=== PATIENT | male | born 1975 | race Caucasian/White ===

== ENCOUNTER 2020-01-21 07:26 | Day surgery (SDC) | payer OTHER, SELFPAY ==
[2020-01-21] VITALS (7 sets, daily range): BP systolic 134–160; BP diastolic 85–107; PULSE 84–103; RESP 15–18; TEMP 36.4–36.6; O2SAT 97–99
--- NOTE | 2020-01-21 08:09 | ED.GENADULT ---
HPI - General Adult General Chief complaint: Unspecified Stated complaint: I CANT SWALLOW Time Seen by Provider: 01/21/20 08:09 Source: patient and family Mode of arrival: ambulatory Limitations: no limitations History of Present Illness HPI narrative: Patient is a 44-year-old male with a history of hypertension who presents for evaluation of difficulty swallowing. Patient states that he went to swallow a 200 mg ibuprofen tablet last night and feels as if it got stuck in his throat. He has been unable to swallow his own secretions, and has had some episodes of vomiting. He denies any chest pain. He states he just has an irritation in his upper throat. He states approximately 10 years ago he had a piece of chicken that was stuck and he required endoscopy to have that removed. This was done at [facility]. He did follow with a marketing programs specialist for a short time following that but no longer follows with anybody. Patient denying chest pain or shortness of breath. Related Data Allergies Allergy/AdvReac Type Severity Reaction Status Date / Time atorvastatin Allergy Unknown Unknown Verified 01/21/20 07:35 Review of Systems Review of Systems: Narrative: CONSTITUTIONAL: Denies fever CARDIOVASCULAR: Denies chest pain RESPIRATORY: Denies cough or dyspnea. GASTROINTESTINAL: Denies abdominal pain, reports nausea and vomiting SKIN: Denies rash MUSCULOSKELETAL: Denies back pain NEUROLOGIC: Denies headache PMFSH Past Medical History Medical History Hypertension Hypothyroidism Social History Social History (Updated 01/21/20 @ 08:48 by Tere Burger MD) Smoking status: Former smoker Tobacco type: cigarettes Alcohol intake: current Substance use: never Living arrangements: with family Gender identity (if verbalized by the patient): Male Exam Narrative: Exam Narrative: GENERAL: Awake, alert, conversant HEAD: Normocephalic, atraumatic. EYES: PERRLA and EOMI. ENT: Nares clear, no rhinorrhea or epistaxis. Mucous membranes moist. NECK: Supple. CHEST: No respiratory distress, breathing even and non labored HEART: Regular rate, sinus rhythm ABDOMEN:Non distended, non tender EXTREMITIES: Normal range of motion. No edema. SKIN: Warm, dry, no rash. NEURO:No focal deficits. Alert and oriented x3 Course Vital Signs Vital signs: Vital Signs Temperature 36.6 C 01/21/20 07:30 Pulse Rate 97 01/21/20 07:30 Respiratory Rate 15 01/21/20 07:30 Blood Pressure 160/107 H 01/21/20 07:30 Pulse Oximetry 99 01/21/20 07:30 Temperature 36.6 C 01/21/20 07:30 Pulse Rate 88 01/21/20 10:15 Respiratory Rate 17 01/21/20 10:15 Blood Pressure 148/98 H 01/21/20 10:15 Pulse Oximetry 97 01/21/20 10:15 Medical Decision Making MDM Narrative Medical decision making narrative: Patient presented for difficulty swallowing in the setting of a pill that may be stuck. Patient at this point can barely tolerate his secretions but is hemodynamically stable. No chest pain or shortness of breath. IV access obtained, labs are drawn. We tried nitroglycerin and glucagon, patient did try to swallow some liquid and was unable to tolerate this. Dr. Awan consulted with gastroenterology will take patient to endoscopy suite this morning. Differential Diagnosis Differential Diagnosis: Pill esophagitis, food impaction, obstruction Vital Signs Vital Signs: Vital Signs Temperature 36.6 C 01/21/20 07:30 Pulse Rate 97 01/21/20 07:30 Respiratory Rate 15 01/21/20 07:30 Blood Pressure 160/107 H 01/21/20 07:30 Pulse Oximetry 99 01/21/20 07:30 Temperature 36.6 C 01/21/20 07:30 Pulse Rate 88 01/21/20 10:15 Respiratory Rate 17 01/21/20 10:15 Blood Pressure 148/98 H 01/21/20 10:15 Pulse Oximetry 97 01/21/20 10:15 Lab Data Result diagrams: 01/21/20 09:03 01/21/20 09:03 Labs: Lab Results 01/10
[2020-01-21 09:09] LABS: Basophils Absolute Auto 0.1 K/mm3 (0.0-0.1); Basophils Percent Auto 0.6 % (0.2-1.2); Eosinophils Absolute Auto 0.2 K/mm3 (0-0.3); Eosinophils Percent Auto 1.9 % (0-4.4); Hematocrit 44.3 % (42.0-52.0); Hemoglobin 14.9 g/dL (14.0-18.0); Immature Granulocyte Absolute 0.04 K/mm3 (0.00-0.031); Immature Granulocyte Percent A 0.5 % (0-0.5); Lymphocytes Absolute Auto 1.37 K/mm3 (0.9-3.2); Lymphocytes Percent Auto 17.3 % (18.3-44.2); Mean Corpuscular HGB Conc 33.6 g/dl (32-36); Mean Corpuscular Hemoglobin 28.5 pg (26-34); Mean Corpuscular Volume 84.9 fl (80-100); Mean Platelet Volume 8.5 fl (7.4-10.4); Monocytes Absolute Auto 0.5 K/mm3 (0.1-0.6); Monocytes Percent Auto 5.8 % (2.6-8.5); Neutrophils Absolute Auto 5.9 K/mm3 (1.3-6.7); Neutrophils Percent Auto 73.9 % (45.5-73.1); Platelet Count Result 300 k/mm3 (150-375); Red Blood Count 5.22 M/mm3 (4.6-6.20); Red Cell Distribution Width 13.2 % (11.5-14.5); White Blood Count 7.9 K/mm3 (4.5-10.0)
[2020-01-21 09:22] LABS: Anion Gap 9 mmol/L (8-16); Blood Urea Nitrogen 13 mg/dL (9-20); Calcium 9.5 mg/dL (8.4-10.2); Carbon Dioxide 27 mmol/L (22-30); Chloride 101 mmol/L (98-107); Estimated CRCL calculation 131 ml/min; Estimated Glomerular Filt Rate > 60; Glucose 141 mg/dL (75-110); Potassium 4.6 mmol/L (3.4-5.0); Sodium 137 mmol/L (137-145)
[2020-01-21] MEDS: GLUCAGON FOR INJ 1 MG VIAL IM (10:02)
[2020-01-21] MEDS: ONDANSETRON INJ 4 MG/2 ML VIAL IV PUSH (10:03)
[2020-01-21] MEDS: NITROGLYCERIN SL 0.4 MG TABLET SUBLINGUAL (10:03)
[2020-01-21] MEDS: SODIUM CHLORIDE 0.9% IV 1,000 ML 999 ML IV CONT (10:58)
--- NOTE | 2020-01-21 11:06 | WPDANESEPPF ---
Anes - Initial Pre Proc Eval Procedure: Operation Date: 01/21/20 11:00 Proposed Procedures p Esophagogastroduodenoscopy - Bandar Awan MD Date/Time: 01/21/20 11:06 Surgeon: Bandar Awan MD Pre Op Diagnosis: I CANT SWALLOW Patient Data Age: 44 Gender: M Height: 1.91 m Weight: 151 kg Last Vital Signs Temp 36.6 C 01/21/20 07:30 Pulse 88 01/21/20 10:15 Resp 17 01/21/20 10:15 BP 148/98 H 01/21/20 10:15 Pulse Ox 97 01/21/20 10:15 Allergies Allergy/AdvReac Type Severity Reaction Status Date / Time atorvastatin Allergy Unknown Unknown Verified 01/21/20 07:35 Home Medications Medication Instructions Recorded Confirmed Type hydrochlorothiazide 25 mg tablet 25 mg PO DAILY #90 tablet 12/24/19 Rx benazepril 10 mg tablet See Rx Instructions .ROUTE 01/06/20 Rx .COMPLEX #30 tablet levothyroxine 100 mcg tablet 100 mcg PO DAILY #60 tablet 01/06/20 Rx Laboratory Tests 01/21/20 01/21/20 09:03 09:03 WBC 7.9 K/mm3 K/mm3 (4.5-10.0) RBC 5.22 M/mm3 M/mm3 (4.6-6.20) Hgb 14.9 g/dL g/dL (14.0-18.0) Hct 44.3 % % (42.0-52.0) MCV 84.9 fl fl (80-100) MCH 28.5 pg pg (26-34) MCHC 33.6 g/dl g/dl (32-36) RDW 13.2 % % (11.5-14.5) Plt Count 300 k/mm3 k/mm3 (150-375) MPV 8.5 fl fl (7.4-10.4) Immature Gran % (Auto) 0.5 % % (0-0.5) Neut % (Auto) 73.9 % H % (45.5-73.1) Lymph % (Auto) 17.3 % L % (18.3-44.2) [place] % (Auto) 5.8 % % (2.6-8.5) Eos % (Auto) 1.9 % % (0-4.4) Baso % (Auto) 0.6 % % (0.2-1.2) Lymph # (Auto) 1.37 K/mm3 K/mm3 (0.9-3.2) [place] # (Auto) 0.5 K/mm3 K/mm3 (0.1-0.6) Eos # (Auto) 0.2 K/mm3 K/mm3 (0-0.3) Baso # (Auto) 0.1 K/mm3 K/mm3 (0.0-0.1) Abs Immat Gran (auto) 0.04 K/mm3 H K/mm3 (0.00-0.031) Absolute Neuts (auto) 5.9 K/mm3 K/mm3 (1.3-6.7) Absolute Nucleated RBC 0.0 K/mm3 K/mm3 (0.0-0.012) Nucleated RBC % 0.0 % % (0.0-0.2) Sodium 137 mmol/L mmol/L (137-145) Potassium 4.6 mmol/L mmol/L (3.4-5.0) Chloride 101 mmol/L mmol/L (98-107) Carbon Dioxide 27 mmol/L mmol/L (22-30) Anion Gap 9 mmol/L mmol/L (8-16) BUN 13 mg/dL mg/dL (9-20) Creatinine 1.00 mg/dL mg/dL (0.7-1.3) Estim Creat Clear Calc 131 ml/min ml/min Estimated GFR > 60 (59 - ) Glucose 141 mg/dL H mg/dL (75-110) Calcium 9.5 mg/dL mg/dL (8.4-10.2) Patient hx anesthesia problems: none Family hx anesthesia problems: none [facility], [facility] Past Medical History Medical History (Updated 01/21/20 @ 11:07 by Xavier Ochoa MD) Hypercholesterolemia Hypertension Hypothyroidism Morbid obesity with BMI of 40.0-44.9, adult Social History Social History (Updated 01/21/20 @ 08:48 by Tere Burger MD) Smoking status: Former smoker Tobacco type: cigarettes Alcohol intake: current Substance use: never Living arrangements: with family Gender identity (if verbalized by the patient): Male Anes - Eval Final PreProcedure Day of Procedure 01/21/20 11:06 Patient weight: obese Heart: regular rate and rhythm Lungs: clear to auscultation and normal air movement Airway: Mallampati scale class II Neurological: alert and oriented Last oral intake: >/= 8 hours ASA classification: III Emergent: no Anesthetic plan: proceed Anesthesia type and monitoring: general GIVS and ETT Informed Consent: The patient's anesthetic plan and its attendant risks and benefits were discussed with the patient/family/POA. Questions were solicited and answers provided to the satisfaction of the patient/family/POA.
[2020-01-21] MEDS: LACTATED RINGERS 1,000 ML 150 ML IV CONT (11:19)
[2020-01-21] MEDS: BENZOCAINE (*SP) 60 ML SPRAY CAN (HURRICAINE) 1 SPRAY MUCOUS MEM (11:20)
--- NOTE | 2020-01-21 11:20 | WPDHPUPDATE1 ---
History and Physical Update Update Date/Time: 01/21/20 11:20 History and Physical has been reviewed, including an updated exam of the patient. There are NO changes in the patient's condition. Risks, benefits, and alternatives have been discussed and questions answered. Patient agrees to proceed with procedure.
--- NOTE | 2020-01-21 11:34 | WPDGICN ---
Assessment and Plan Assessment and plan (1) Impacted esophageal foreign body: Qualifiers: Encounter type: initial encounter Qualified Code(s): T18.108A - Unspecified foreign body in esophagus causing other injury, initial encounter Code(s): T18.108A - Unspecified foreign body in esophagus causing other injury, initial encounter Status: Acute Assessment and Plan: Patient has a pill impacted in the esophagus. Plan is for EGD to assess more thoroughly. Suspect he has esophageal narrowing given his long history of dysphagia. Plan is for EGD to assess more thoroughly. Further recommendations will be given after endoscopy (2) Pill dysphagia: Code(s): R13.10 - Dysphagia, unspecified Status: Acute (3) Morbid obesity with BMI of 40.0-44.9, adult: Code(s): E66.01 - Morbid (severe) obesity due to excess calories; Z68.41 - Body mass index (BMI) 40.0-44.9, adult Status: Acute GI Consult Note Consult date/time: 01/21/20 11:34 HPI: Jony Benson is a 44 year old male seen in evaluation at the request of the emergency room. Patient has a long history of difficulty swallowing. Occasionally food will pass slowly. He typically has to swallow and chew food very carefully prior to eating. He denies any abdominal or chest pain. He denies heartburn. He is on no specific medications. He denies any recent weight loss. Last evening he took an ibuprofen pill in over the last 12 hours is been main able to his swallow even his own saliva. Feels as though it may be caught high in his chest. Review of Systems Review of Systems: All systems reviewed & are unremarkable except as noted in HPI and below PMFSH Past Medical History Medical History Hypercholesterolemia Hypertension Hypothyroidism Morbid obesity with BMI of 40.0-44.9, adult Family History Family History Father Family history of diabetes mellitus in first degree relative Other Diabetes mellitus Family history of lung cancer Hypertension Social History Social History (Updated 01/21/20 @ 08:48 by Tere Burger MD) Smoking status: Former smoker Tobacco type: cigarettes Alcohol intake: current Substance use: never Living arrangements: with family Gender identity (if verbalized by the patient): Male Meds Home Medications and Allergies Home Medications Medication Instructions Recorded Confirmed Type hydrochlorothiazide 25 mg tablet 25 mg PO DAILY #90 tablet 12/24/19 Rx benazepril 10 mg tablet See Rx Instructions .ROUTE 01/06/20 Rx .COMPLEX #30 tablet levothyroxine 100 mcg tablet 100 mcg PO DAILY #60 tablet 01/06/20 Rx Allergies Allergy/AdvReac Type Severity Reaction Status Date / Time atorvastatin Allergy Unknown Unknown Verified 01/21/20 11:14 Vital Signs Vital Signs - 24 hr 01/21/20 07:30 01/21/20 07:35 01/21/20 10:15 Temperature 97.8 F Pulse Rate 97 103 H 88 Respiratory Rate 15 17 Blood Pressure 160/107 H 148/98 H Pulse Oximetry 99 97 01/21/20 11:17 Temperature 97.6 F Pulse Rate 97 Respiratory Rate 16 Blood Pressure 142/88 H Pulse Oximetry 98 Exam Narrative: Exam Narrative: Physical exam reveals patient to be alert. Vital signs stable. HEENT exam unremarkable. Lungs are clear to auscultation and percussion. Heart is without murmur or extra sounds. Abdominal exam bowel sounds present soft nontender with no organomegaly. Rectal exam is deferred. Results Labs CBC & Chem 7: 01/21/20 09:03 01/21/20 09:03 Labs: Short CBC 01/21/20 Range/Units 09:03 WBC 7.9 (4.5-10.0) K/mm3 Hgb 14.9 (14.0-18.0) g/dL Hct 44.3 (42.0-52.0) % Plt Count 300 (150-375) k/mm3 [facility] 01/21/20 09:03 Sodium 137 Potassium 4.6 Chloride 101 Carbon Dioxide 27 BUN 13 Creatinine 1.00 Glucose 141 H Ever
== END 2020-01-21 12:22 | disposition home or self-care (01) ==
LOC: ANHED 10:33 → ANHSURGERY 10:48 → ANHENDO 11:13
PROVIDERS: Emergency Provider Emergency Medicine; PCP Family Medicine; Visit Provider Internal Medicine Gastroenterology
PROC: 0DJ08ZZ Inspection of Upper Intestinal Tract, Via Natural or Artificial Opening Endoscopic (ICD-10-PCS; CPT 43235; principal; 2020-01-21 11:00)
DX: T18.198A Other foreign object in esophagus causing other injury, initial encounter (principal); K22.2 Esophageal obstruction; E66.01 Morbid (severe) obesity due to excess calories; Z68.41 Body mass index [BMI] 40.0-44.9, adult; E78.00 Pure hypercholesterolemia, unspecified; I10 Essential (primary) hypertension; E03.9 Hypothyroidism, unspecified; Z87.891 Personal history of nicotine dependence; Z79.899 Other long term (current) drug therapy; X58.XXXA Exposure to other specified factors, initial encounter
CPT/HCPCS: 43450; 43247; 36415; 80048; 85025; 96372; 96374; 99285; A9270; J1610; J2405; J2704; J7030; J7120

== ENCOUNTER 2020-02-23 00:07 | Outpatient (CLI) | payer OTHER, SELFPAY ==
[2020-02-23 18:38] LABS: SARS-CoV-2 RNA PCR Negative
== END 2020-02-23 00:08 | disposition home or self-care (01) ==
LOC: ANHCOVIDDT 00:08
PROVIDERS: PCP Family Medicine; Visit Provider Internal Medicine Gastroenterology
DX: Z01.812 Encounter for preprocedural laboratory examination (principal); Z20.828 Contact with and (suspected) exposure to other viral communicable diseases
CPT/HCPCS: 87635; C9803; U0003

== ENCOUNTER 2020-02-25 00:50 | Day surgery (SDC) | payer OTHER, SELFPAY ==
[2020-02-21 13:19] VITALS: BMI 39.2
[2020-02-25 06:24] VITALS: BP 144/98; PULSE 87; RESP 20; TEMP 36.6; O2SAT 98
[2020-02-25] MEDS: LACTATED RINGERS 1,000 ML 150 ML IV CONT (06:37)
--- NOTE | 2020-02-25 07:16 | WPDANESEPPF ---
Anes - Initial Pre Proc Eval Procedure: Operation Date: 02/25/20 07:30 Proposed Procedures p Esophagogastroduodenoscopy - Bandar Awan MD Date/Time: 02/25/20 07:16 Surgeon: Bandar Awan MD Pre Op Diagnosis: Dysphagia, Esophageal Ring Patient Data Age: 44 Gender: M Height: 6 ft 4 in Weight: 144 kg Last Vital Signs Temp 97.8 F 02/25/20 06:24 Pulse 87 02/25/20 06:24 Resp 20 02/25/20 06:24 BP 144/98 H 02/25/20 06:24 Pulse Ox 98 02/25/20 06:24 Allergies Allergy/AdvReac Type Severity Reaction Status Date / Time atorvastatin Allergy Unknown Unknown Verified 02/25/20 06:22 Home Medications Medication Instructions Recorded Confirmed Type hydrochlorothiazide 25 mg tablet 25 mg PO DAILY #90 tablet 12/24/19 02/21/20 Rx benazepril 10 mg tablet See Rx Instructions .ROUTE 01/06/20 02/25/20 Rx .COMPLEX #30 tablet levothyroxine 100 mcg tablet 100 mcg PO DAILY #60 tablet 01/06/20 02/21/20 Rx omeprazole magnesium [Prilosec OTC] 20 mg PO DAILY 02/21/20 02/21/20 History Patient hx anesthesia problems: none Family hx anesthesia problems: none PMFSH Past Medical History Medical History Hypercholesterolemia Hypertension Hypothyroidism Morbid obesity with BMI of 40.0-44.9, adult Family History Family History Father Family history of diabetes mellitus in first degree relative Other Diabetes mellitus Family history of lung cancer Hypertension Social History Social History (Updated 01/21/20 @ 08:48 by Tere Burger MD) Smoking packs per day: 1 Smoking cigarettes per day: 20.0 Smoking status: Former smoker Tobacco type: cigarettes Alcohol intake: current Substance use: never Living arrangements: with family Gender identity (if verbalized by the patient): Male Spiritual care concerns: No Anes - Eval Final PreProcedure Day of Procedure 02/25/20 07:16 Patient weight: obese Heart: regular rate and rhythm Lungs: clear to auscultation Airway: Mallampati scale class II Neurological: alert and oriented Last oral intake: >/= 8 hours ASA classification: III Emergent: no Anesthetic plan: proceed Anesthesia type and monitoring: general GIVS and standard monitoring Informed Consent: The patient's anesthetic plan and its attendant risks and benefits were discussed with the patient/family/POA. Questions were solicited and answers provided to the satisfaction of the patient/family/POA.
[2020-02-25] MEDS: BENZOCAINE (*SP) 60 ML SPRAY CAN (HURRICAINE) 1 SPRAY MUCOUS MEM (07:46)
--- NOTE | 2020-02-25 07:53 | WPDGICN ---
Assessment and Plan Assessment and plan (1) Esophageal stricture: Code(s): K22.2 - Esophageal obstruction Status: Acute Assessment and Plan: Patient has a history of a pill impacted in the midesophagus. Removed 1 month ago. He states he is currently eating well with no difficulties. He has been maintained on omeprazole daily. There was suspicion of eosinophilic esophagitis. Plan is for follow-up EGD at this time. GI Consult Note Consult date/time: 02/25/20 07:53 HPI: Jony Benson is a 44 year old male Seen in follow-up after recent impaction. Patient states he is eating well including meats without difficulty. He denies any heartburn. He continues to take omeprazole 20 mg p.o. daily. One month ago had of impacted pill in the mid esophagus. Midesophageal stricture ring was identified. Patient denies heartburn or pain. Review of Systems Review of Systems: All systems reviewed & are unremarkable except as noted in HPI and below PMFSH Past Medical History Medical History (Updated 02/25/20 @ 07:55 by Bandar Awan MD) Hypercholesterolemia Hypertension Hypothyroidism Morbid obesity with BMI of 40.0-44.9, adult Family History Family History Father Family history of diabetes mellitus in first degree relative Other Diabetes mellitus Family history of lung cancer Hypertension Social History Social History (Updated 01/21/20 @ 08:48 by Tere Burger MD) Smoking packs per day: 1 Smoking cigarettes per day: 20.0 Smoking status: Former smoker Tobacco type: cigarettes Alcohol intake: current Substance use: never Living arrangements: with family Gender identity (if verbalized by the patient): Male Spiritual care concerns: No Meds Home Medications and Allergies Home Medications Medication Instructions Recorded Confirmed Type hydrochlorothiazide 25 mg tablet 25 mg PO DAILY #90 tablet 12/24/19 02/21/20 Rx benazepril 10 mg tablet See Rx Instructions .ROUTE 01/06/20 02/25/20 Rx .COMPLEX #30 tablet levothyroxine 100 mcg tablet 100 mcg PO DAILY #60 tablet 01/06/20 02/21/20 Rx omeprazole magnesium [Prilosec OTC] 20 mg PO DAILY 02/21/20 02/21/20 History Allergies Allergy/AdvReac Type Severity Reaction Status Date / Time atorvastatin Allergy Unknown Unknown Verified 02/25/20 06:22 Vital Signs Vital Signs - 24 hr 02/25/20 06:24 Temperature 97.8 F Pulse Rate 87 Respiratory Rate 20 Blood Pressure 144/98 H Pulse Oximetry 98 Exam Narrative: Exam Narrative: Physical exam reveals patient to be alert. Vital signs stable. HEENT exam unremarkable. Lungs are clear to auscultation and percussion. Heart is without murmur or extra sounds. Abdominal exam bowel sounds are present soft nontender with no organomegaly. Digital external rectal exam deferred today.
[2020-02-25 07:59] VITALS: BP 144/86; PULSE 85; RESP 16; O2SAT 97
[2020-02-25 08:09] VITALS: BP 133/82; PULSE 90; RESP 16; O2SAT 99
[2020-02-25 08:19] VITALS: BP 120/84; PULSE 83; RESP 16; O2SAT 99
== END 2020-02-25 08:25 | disposition home or self-care (01) ==
PROVIDERS: PCP Family Medicine; Visit Provider Internal Medicine Gastroenterology
PROC: 0DJ08ZZ Inspection of Upper Intestinal Tract, Via Natural or Artificial Opening Endoscopic (ICD-10-PCS; CPT 43235; principal; 2020-02-25 07:30)
DX: K22.2 Esophageal obstruction (principal); I10 Essential (primary) hypertension; E03.9 Hypothyroidism, unspecified; E78.00 Pure hypercholesterolemia, unspecified; E66.01 Morbid (severe) obesity due to excess calories; Z68.38 Body mass index [BMI] 38.0-38.9, adult; Z87.891 Personal history of nicotine dependence
CPT/HCPCS: 43450; J2704; J7120

== ENCOUNTER 2020-12-26 12:02 | Outpatient (CLI) | payer OTHER, SELFPAY ==
--- NOTE | 2021-01-19 10:44 | WPDHOMESLEEP ---
Sleep Study - Home Unattended Date of Study: 12/26/20 Ordering Provider: Shayna Dietz MD Interpreting Provider: Shayna Dietz MD Home Sleep Study Type: Apnea Link Air Height: 1.88 m Weight: 154.221 kg Body Mass Index: 43.6 Neck Circumference (inches): 22 [place]: 18 Reason for Sleep Study Always tired, snoring Sleep History Jony Benson is 45 years old male with a long history of loud constant snoring. He has a family history of sleep apnea with his mother having a diagnosis of [place]. He frequently awakens from sleep feeling short of breath. He occasionally [place] at night with heartburn, belching or coughing. He occasionally has trouble sleeping with a cold. He constantly wakes up gasping for breath. He occasionally sweats excessively at night. He does not have palpitations at night. He frequently falls asleep in the day, frequently falls asleep involuntarily, and this occasionally happens while driving. He does not have loss of muscle tone with strong emotion. He occasionally has daytime difficulties in the day due to excessively sleepiness. He is an asset accountant. He does not feel paralyzed on waking or falling asleep. He occasioanlly has vivid dreamlike scenes on waking or falling asleep. He occasionally has nightmares. He rarely remembers his dreams. He does not have racing thoughts. He occasionally feels sad or depressed. He rarely feels anxiety. He occasionally has muscular tension. He occasionally notices parts of his body jerking and he occasionally kicks at night. He occasionally has crawling and aching feelings in his legs. He frequently has leg pain at night. He rarely has morning jaw pain and rarely grinds his teeth during sleep. He frequently has bothered by pain during the day. He occasionally is awakened by pain at night, occasionally wakes up feeling stiff in the morning with sore or achy muscles and pain in the spine. He has fatigue. Normal bedtime is 10:00 p.m., takes 10 minutes to fall asleep, typically waking 3-4 times at night to urinate and get a drink of water before returning to bed which takes 5-10 minutes. He wakes in the morning at 5:45 a.m.. On the weekends, bedtime is also 10:00 p.m. and he wakes by 6:30 a.m.. He estimates getting 7 hours of sleep at night. He takes naps in the afternoon or evening. A short nap is not refreshing. He is usually drowsy in the morning for 2 hours. He feels better in the morning compared to other times of day. Habits: quit tobacco 2019. Caffeine 4 cups of coffee a day. No alcohol or recreational drugs. [facility] Past Medical History Medical History (Updated 01/20/21 @ 03:14 by Shayna Dietz MD) Diabetes type 2, controlled Hypercholesterolemia Hypertension Hypothyroidism Morbid obesity with BMI of 40.0-44.9, adult Family History Family History Father Family history of diabetes mellitus in first degree relative Alcohol abuse Mother COPD (chronic obstructive pulmonary disease) Tobacco abuse Sibling No problems noted. Other Diabetes mellitus Family history of lung cancer Hypertension Social History Social History Smoking packs per day: 1 Smoking cigarettes per day: 20.0 Tobacco type: cigarettes Second hand tobacco smoke exposure: No Smoking end date: 11/08/18 Alcohol intake: current Substance use: never Substance use type: does not use Additional occupation/education comments: asset accountant Gender identity (if verbalized by the patient): Male Spiritual care concerns: No Medications Home Medications Medication Instructions Recorded Confirmed Type omeprazole magnesium [Prilosec OTC] 20 mg PO DAILY 02/21/20 11/20/20 History benazepril 20 mg tablet 20 mg PO DAILY #90 tablet 11/20/20 11/20/20 Rx ezetimibe 10 mg tablet 10 mg PO DAILY #90 tablet 11/20/20 11/20/20 Rx metformin 500 mg tablet,exte
[2021-01-20 03:16] VITALS: BMI 43.6
== END 2020-12-27 08:51 | disposition home or self-care (01) ==
LOC: ANHCSM 12:03
PROVIDERS: PCP Family Medicine; Visit Provider Internal Medicine Critical Care Medicine
DX: G47.33 Obstructive sleep apnea (adult) (pediatric) (principal); G47.30 Sleep apnea, unspecified
CPT/HCPCS: 95806

== ENCOUNTER 2021-03-08 07:42 | Outpatient (CLI) | payer BC, SELFPAY ==
--- NOTE | 2021-03-27 14:08 | WPDSLEEPSTUD ---
Sleep Study Date of Study: 03/08/21 <Ruth Brewer - Last Filed: 03/27/21 14:48> Ordering Provider: Orlando Roa MD <Ruth Brewer - Last Filed: 03/27/21 14:48> Interpreting Physician: Ruth Brewer DO <Ruth Brewer - Last Filed: 03/27/21 14:48> Sleep Study Type: CPAP Titration <Ruth Brewer - Last Filed: 03/27/21 14:48> Height: 1.91 m <Ruth Brewer - Last Filed: 03/27/21 14:48> Weight: 154.675 kg <Ruth Brewer - Last Filed: 03/27/21 14:48> Body Mass Index: 42.6 <Ruth Brewer - Last Filed: 03/27/21 14:48> Neck Circumference (inches): 21 <Ruth Brewer - Last Filed: 03/27/21 14:48> [place]: 16 <Ruth Brewer - Last Filed: 03/27/21 14:48> Reason for Sleep Study The patient had a home sleep test on December 26, 2020 that showed severe obstructive sleep apnea with an AHI of 82. The patient desaturated to 67% and spent 36 % of the study with an SpO2<88%. It was recommended that he have a PAP Titration. <Ruth Brewer DO - Last Filed: 03/27/21 14:48> Sleep History Jony Benson is 45 years old male with a long history of loud constant snoring. He has a family history of sleep apnea with his mother having a diagnosis of W[place]ATT. He frequently awakens from sleep feeling short of breath. He occasionally dav[place]son at night with heartburn, belching or coughing. He occasionally has trouble sleeping with a cold. He constantly wakes up gasping for breath. He occasionally sweats excessively at night. He does not have palpitations at night. He frequently falls asleep in the day, frequently falls asleep involuntarily, and this occasionally happens while driving. He does not have loss of muscle tone with strong emotion. He occasionally has daytime difficulties in the day due to excessively sleepiness. He is an contract accountant. He does not feel paralyzed on waking or falling asleep. He occasioanlly has vivid dreamlike scenes on waking or falling asleep. He occasionally has nightmares. He rarely remembers his dreams. He does not have racing thoughts. He occasionally feels sad or depressed. He rarely feels anxiety. He occasionally has muscular tension. He occasionally notices parts of his body jerking and he occasionally kicks at night. He occasionally has crawling and aching feelings in his legs. He frequently has leg pain at night. He rarely has morning jaw pain and rarely grinds his teeth during sleep. He frequently has bothered by pain during the day. He occasionally is awakened by pain at night, occasionally wakes up feeling stiff in the morning with sore or achy muscles and pain in the spine. He has fatigue. Normal bedtime is 10:00 p.m., takes 10 minutes to fall asleep, typically waking 3-4 times at night to urinate and get a drink of water before returning to bed which takes 5-10 minutes. He wakes in the morning at 5:45 a.m.. On the weekends, bedtime is also 10:00 p.m. and he wakes by 6:30 a.m.. He estimates getting 7 hours of sleep at night. He takes naps in the afternoon or evening. A short nap is not refreshing. He is usually drowsy in the morning for 2 hours. He feels better in the morning compared to other times of day. Habits: quit tobacco 2019. Caffeine 4 cups of coffee a day. No alcohol or recreational drugs. <Ruth Brewer DO - Last Filed: 03/27/21 14:48> [facility] Past Medical History Medical History: Medical History Diabetes type 2, controlled Hypercholesterolemia Hypertension Hypothyroidism Morbid obesity with BMI of 40.0-44.9, adult <Ruth Brewer DO - Last Filed: 03/27/21 14:48> Family History Family History: Family History Father Family history of diabetes mellitus in first degree relative Alcohol abuse Mother
[2021-03-27 14:13] VITALS: BMI 42.6
== END 2021-03-09 07:50 | disposition home or self-care (01) ==
LOC: ANHCSM 07:44
PROVIDERS: PCP Family Medicine; Visit Provider Family Medicine
DX: G47.33 Obstructive sleep apnea (adult) (pediatric) (principal)
CPT/HCPCS: 95811

== ENCOUNTER 2021-03-26 14:29 | Outpatient (CLI) | payer BC, SELFPAY ==
--- NOTE | 2021-03-27 09:39 | WPDPFTINT ---
PFT Procedure Performed PFT Procedure Performed Spirometry with Pre/Post Bronchodilator Plethysmography (Lung Vol) Diffusing Cap (DLCO) Flow Vol Loop PFT Interpretation This is a pulmonary function test with pre and post-bronchodilator spirometry, plethysmography and diffusing capacity. The test was performed and results interpreted in accordance with the 2019 and 2005 ATS/ERS Task Force guidelines respectively using the Global Lung Function Initiative-2012 reference equations. Patient demonstrated good effort and cooperation. Reproducibility criteria were met. The quality of the pre bronchodilator spirometry maneuver was Grade A and post bronchodilator spirometry maneuver was Grade A. Findings: Spirometry: there is decreased maximal expiratory airflow at all lung volumes with concave expiratory flow tracing. The pre bronchodilator FVC is 4.14 L, 68% predicted. The pre bronchodilator FEV1 is 2.48 L, 52% predicted. The FEV1: FVC ratio 60%. Post bronchodilator FVC is 4.67 L, representing a 13% increase. The post bronchodilator FEV1 is 2.78 L, representing a 12% increase. Plethysmography: The total lung capacity 7.13 L, 89% predicted. The functional residual capacity is 3.58 L, 87% predicted. The residual volume is 2.90 L, 131% predicted. Diffusing capacity: The absolute diffusion capacity is 29.0, 85% predicted. The diffusing capacity corrected for alveolar volume is 4.83, 109% predicted. Impression: There is a moderately severe obstructive abnormality with significant improvement after inhaling a single dose of albuterol. The lung volumes are normal. The diffusing capacity is normal. There are no prior studies for comparison
== END 2021-03-26 14:30 | disposition home or self-care (01) ==
LOC: ANHPFT 14:35
PROVIDERS: PCP Family Medicine; Visit Provider Nurse Practitioner Family
DX: G47.33 Obstructive sleep apnea (adult) (pediatric) (principal); R94.2 Abnormal results of pulmonary function studies
CPT/HCPCS: 94060; 94726; 94729